=== PATIENT | female | born 1935 | race American Indian/Alaskan Native ===

== ENCOUNTER 2018-05-01 11:14 | Outpatient (CLI) | payer MEDICARE ==
--- NOTE | 2018-05-01 12:36 | Magnetic Resonance Report ---
MRI scan of brain: Next Technique: Multiplanar, multisequence images were obtained without contrast injection. History: Early onset dementia. Findings: No evidence of restricted diffusion. Ventricles are normal in size and midline in location. Mild cortical atrophy. Periventricular and subcortical areas of increased signal intensity without restricted diffusion. Normal brainstem and cerebellum. No extra-axial fluid collection. Impression: No acute intracranial abnormality. 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
== END 2018-05-01 11:15 | disposition home or self-care (01) ==
LOC: SPVIMAG 11:14
PROVIDERS: ATTEND Internal Medicine
DX: G30.0 Alzheimer's disease with early onset (principal)
CPT/HCPCS: 70551